=== PATIENT | female | born 1950 | race Caucasian/White ===

== ENCOUNTER 2018-02-19 09:31 | Observation (INO) | payer OTHER ==
[2018-02-19] MEDS ORDERED: PANTOPRAZOLE SODIUM 40 MG VIAL IVP ONE (09:55)
[2018-02-19] MEDS ORDERED: NS 500 ML IV ONE (09:55)
--- NOTE | 2018-02-19 10:05 | CPEKG ---
Heart Rate: 70 RR Interval: 857 P-R Interval: 188 QRSD Interval: 96 QT Interval: 444 QTC Interval: 480 P Lowman: 72 QRS Lowman: 73 T Wave Lowman: -37 EKG Severity - ABNORMAL ECG - EKG Impression: SINUS RHYTHM EKG Impression: NONSPECIFIC T ABNORMALITIES, INFERIOR LEADS Electronically Signed By: Odilon Jordan 19-Feb-2018 14:55:05
[2018-02-19 10:20] LABS: PLATELET COUNT 323 10^3/uL (150-400)
[2018-02-19 10:27] LABS: INR 0.93 (0.83-1.16); PROTIME(PATIENT) 12.7 SEC (12.0-15.0)
--- NOTE | 2018-02-19 11:06 | EDPHY ---
H & P Time Seen by Provider: 02/19/18 09:54 HPI/ROS: HPI Lightheaded, short of breath, black stool. 67-year-old female by private vehicle with . Patient was sent from the office of [facility]. She reports that on she was up in [place] playing golf with her . While playing golf she felt short of breath and lightheaded. She describes this as nearly fainting. She reports that she came back down to the [place] area and felt better but then on Monday started feeling lightheaded and short of breath again. She was seen at [facility] for routine checkup on her blood pressure. She explained which she was feeling to the clinician there was sent here for workup and evaluation. ROS: Constitutional: No fever, no chills. No weakness. Eyes: No discharge. No changes in vision. ENT: No sore throat. No nasal congestion or rhinorrhea. Respiratory: No cough. As above. Cardiac: As above, no palpitations. Gastrointestinal: No abdominal pain, no vomiting, no diarrhea. As above. Genitourinary: No hematuria. No dysuria or increased frequency with urination. Musculoskeletal: No back pain. No neck pain. No myalgias or arthralgias. Skin: No rashes. Neurological: No headache. No focal weakness or altered sensation. Past medical history: Hypertension, hypothyroid, hyperlipidemia, hysterectomy, cervical cancer. Does use NSAIDs for pain medication on a regular basis. Social history: Denies alcohol. Here with her . Nonsmoker. Physical Exam: General Appearance: Alert, no distress. This patient is responding to questions appropriately and in full sentences. This patient appears well- hydrated and well-nourished. Eyes: Pupils equal and round no pallor or injection. No lid edema, erythema or injection. Respiratory: There are no retractions, lungs are clear to auscultation with good air movement bilaterally. Cardiovascular: Regular rate and rhythm. No murmur. Gastrointestinal: Abdomen is soft and nontender, no masses, bowel sounds normal. No focal tenderness at McBurney's point. No Ibanez sign. Rectal exam: Normal tone. No gross blood. Black stool. Neurological: Motor sensory function is grossly intact. Cranial nerves are normal. Gait is normal. Skin: Warm and dry, no rashes. Musculoskeletal: Neck is supple and nontender. Extremities are symmetrical. All joints range without pain or impingement. Psychiatric: No agitation. No depression. Database: EKG: EKG time is 10:03 a.m.; EKG shows a narrow complex normal sinus rhythm with a ventricular rate of 70. The FL, QRS, QT intervals are within normal limits. Nonspecific T-wave abnormalities noted. There are no ST-T wave changes indicative of ischemic or injury pattern. No evidence of right heart strain. Interpreted by me. Imaging: Chest x-ray AP portable; the cardiac mediastinal silhouette is unremarkable. No evidence of infiltrate or pneumothorax. Bronchitis noted. No other acute cardiopulmonary disease process noted. Interpreted by me. Procedures: Emergency department course: IV placed x2. Triage vital signs reviewed. She is moderately hypertensive. Vital signs otherwise normal. Afebrile. Given her history she was started on pantoprazole, 80 mg IV. EKG obtained and reviewed by myself. She was started on IV normal saline with 500 cc to be given over the next hour. 11:20 a.m., discussed case with on-call hospitalist. Patient will be continued on pantoprazole IV per protocol while in the emergency department. Patient accepted for admission under the care of Dr. Elmore. Her vital signs have remained normal through her emergency department course. She was admitted to the hospitalist service in stable condition. On-call gastroenterology consulted on this patient. They were aware of her from [facility]. Differential Diagnosis: The differential diagnosis on this patient includes but is not limited to upper gastrointestinal bleeding, anemia, pulmonary embolism, acute coronary syndrome. This represents a partial list of diagnoses considered. These considerations are based on history, physical exam, past history, reassessment and diagnostic testing. Smoking Status: Former smoker Constitutional: Initial Vital Signs Temperature (C) 36.4 C 02/19/18 09:41 Heart Rate 72 02/19/18 09:41 Respiratory Rate 16 02/19/18 09:41 Blood Pressure 150/64 H 02/19/18 09:41 O2 Sat (%) 100 02/19/18 09:41 O2 Delivery Mode Room Air Allergies/Adverse Reactions: codeine Allergy (Verified 02/19/18 13:13) Other-Enter Comments Home Medications: Medication Instructions Recorded Aspirin EC [Aspirin EC 81 mg (*)] 81 mg PO HS 02/19/18 Estrogens,Conjugated [Premarin 1 helio VG Q3D@2100 02/19/18 Vaginal (*)] Hydrochlorothiazide [HCTZ (*)] 25 mg PO DAILY 02/19/18 Levothyroxine [Synthroid 75 mcg 75 mcg PO DAILY06 02/19/18 (*)] Medical Decision Making - Data Points Laboratory Results: Laboratory Results 02/19/18 10:12 02/19/18 10:12 02/19/18 10:12 Patient ABO/Rh A POSITIVE Antibody Screen NEGATIVE Crossmatch IS Only See Detail Medications Given: Acetaminophen (Tylenol) 650 mg PO Q4HRS PRN PRN Reason: Pain, Mild/Fever, Can Take PO Stop: 08/18/18 13:01 Last Admin: 02/19/18 18:54 Dose: 650 mg Alprazolam (Xanax) 1 mg PO HS PRN PRN Reason: Anxiety, Able to Take PO Stop: 08/18/18 20:05 Last Admin: 02/19/18 22:04 Dose: 1 mg Sodium Chloride (Ns) 1,000 mls @ 150 mls/hr IV CONT SESAR Stop: 08/18/18 13:14 Last Admin: 02/19/18 14:33 Dose: 1,000 mls Levothyroxine Sodium (Synthroid) 75 mcg PO DAILY06 SESAR Stop: 08/19/18 05:59 Last Admin: 02/20/18 05:25 Dose: 75 mcg Pantoprazole Sodium (Protonix) 40 mg IVP Q6H SESAR Stop: 08/18/18 17:18 Last Admin: 02/20/18 05:26 Dose: 40 mg Discontinued Medications Sodium Chloride (Ns) 500 mls @ 0 mls/hr IV EDNOW ONE; Wide Open PRN Reason: Protocol Stop: 02/19/18 09:56 Last Admin: 02/19/18 10:07 Dose: 500 mls Pantoprazole Sodium (Protonix) 80 mg IVP EDNOW ONE Stop: 02/19/18 09:56 Last Admin: 02/19/18 10:08 Dose: 80 mg Potassium Chloride (Klor-Con) 40 meq PO ONCE ONE PRN Reason: Protocol Stop: 02/19/18 15:36 Last Admin: 02/19/18 16:19 Dose: 40 meq Potassium Chloride (Klor-Con) 10 - 40 meq PO ONCE ONE PRN Reason: Protocol Stop: 02/19/18 21:47 Last Admin: 02/19/18 22:04 Dose: 10 meq Departure - Departure Disposition: [facility] Acute Clinical Impression: Dyspnea, Near syncope, Gastrointestinal bleeding, upper, Anemia Condition: Good
[2018-02-19] MEDS ORDERED: PROMETHAZINE HCL 25 MG/ML INJ IVP PRN (13:02)
[2018-02-19] MEDS ORDERED: ONDANSETRON 4 MG/2 ML VIAL IVP PRN (13:02)
[2018-02-19] MEDS ORDERED: oxyCODONE IR 5 MG TAB PO PRN (13:02)
[2018-02-19] MEDS ORDERED: ONDANSETRON DISINTEGRATING 4 MG TAB PO PRN (13:02)
[2018-02-19] MEDS ORDERED: HYDROmorphONE/DILAUDID 1 MG/ML INJ IVP PRN (13:02)
[2018-02-19] MEDS ORDERED: NS 1,000 ML IV SCH (13:15)
--- NOTE | 2018-02-19 13:22 | GCON ---
[f rep st] CONSULTATION REFERRING PHYSICIAN: Abisai Barreto MD CHIEF COMPLAINT: 67-year-old woman with GI bleed. HISTORY OF PRESENT ILLNESS: I have been asked to see this patient by Dr. Abisai Barreto for consult ation regarding GI bleed. This 67-year-old woman was brought into the ER by her . She report s that she has been feeling short of breath and lightheadedness for the last several days. She has n oticed some dark black stool. She does take NSAIDs on a frequent basis. She has no prior history of peptic ulcer disease or GI bleeding. She denies any heartburn or difficulty eating. She has had pr evious colonoscopy per her report, which was normal. She presented to the emergency department with the above complaints. Was found to be anemic with a hemoglobin of 9.3, hematocrit 25.9. Serum chemi stries revealed serum sodium 140, potassium 3.2 chloride 101, CO2 25, BUN of 9, creatinine 0.7. PAST MEDICAL HISTORY: Remarkable for hypertension, hypothyroidism, hyperlipidemia, hysterectomy, and cervical cancer. SOCIAL HISTORY: No significant alcohol. Nonsmoker. ALLERGIES: Codeine. MEDICATIONS: Prior to admission, included levothyroxine, hydrochlorothiazide, aspirin. FAMILY HISTORY: Noncontributory as it pertains to chief complaint. REVIEW OF SYSTEMS: Negative for 10 systems, other than mentioned in HPI. PHYSICAL EXAMINATION: VITAL SIGNS: 139/74, heart rate 69, respiratory rate 16, 97% sat on room air, 36.7. GENERAL: A very pleasant woman in no acute distress, lying on the stretcher. HEENT: Normoc ephalic, atraumatic. EOMI. NECK: Supple. No cervical adenopathy. No thyromegaly. LUNGS: Clear. CARDIAC: Normal S1, S2 without murmur. ABDOMEN: Soft, benign. Slight tenderness to palpation in the epigastrium. EXTREMITIES: With no clubbing, cyanosis, edema. NEURO: Nonfocal. SKIN: Warm, dry. PSYCH: Alert, oriented x3 with normal affect. LABORATORY DATA: As above. IMPRESSION: 67-year-old woman with most likely upper gastrointestinal bleed from nonsteroidal anti-i nflammatory drug use. Hemodynamically stable. RECOMMENDATIONS: 1. Admit to the hospital for observation. 2. Serial H and H. 3. IV Protonix 40 mg q.12 h. 4. Clear liquid diet. 5. I will proceed with endoscopy in the morning for further evaluation. 6. We will follow with you. /[id number]/MODL
[2018-02-19] MEDS ORDERED: PROTOCOL MAGNESIUM 1 DOSE IV PRN (14:31)
[2018-02-19] MEDS ORDERED: PROTOCOL POTASSIUM 1 DOSE MISC PRN (14:31)
[2018-02-19] MEDS: ACETAMINOPHEN 325 MG TAB PO PRN ×2 (14:42→18:54)
--- NOTE | 2018-02-19 15:13 | GHP ---
[f rep st] HISTORY AND PHYSICAL DATE OF ADMISSION: 02/19/2018 CHIEF COMPLAINT: Shortness of breath. HISTORY: This is a 67-year-old female with a past medical history of hypertension, hyperlipidemia, w ho presents after a visit at [facility] with complaints of shortness of breath, fatigue, and gener alized weakness. The patient notes that she has had essentially no energy for the last several days. She also notes that she has been having black tarry stools for the last several days. She is accom panied by her who notes that she has even had difficulty doing usual activities of daily abdi ng, like climbing stairs. She states that for quite some time, she has had mid epigastric abdominal pain like a burning-type pain. She notes that occasionally it is so bad, she is unable to eat. She does use ibuprofen regularly, though not daily. She is a nondrinker. She has never had issues with GI bleeding in the past. PAST MEDICAL HISTORY: Includes: 1. Hypertension. 2. Hyperlipidemia. 3. Cervical cancer. PAST SURGICAL HISTORY: Includes partial hysterectomy. FAMILY HISTORY: This is reviewed and noncontributory. SOCIAL HISTORY: The patient is . She is a vegan. She does not drink any alcohol. She is a never smoker. REVIEW OF SYSTEMS: 10-point review of systems obtained, negative except as per HPI. HOME MEDICATIONS: 1. Levothyroxine. 2. HCTZ. 3. Premarin. 4. Aspirin. ALLERGIES: Include codeine. PHYSICAL EXAMINATION: VITAL SIGNS: BP 139/74, heart rate 69, respiratory rate 16, O2 sats 97% on ro om air. Temperature was 36.7. GENERAL APPEARANCE: Well-developed/well-nourished female. She is aw molly and alert. She is in no acute distress. EYES: Anicteric. HEENT: Oropharynx clear. CARDIOVAS CULAR: Regular rate and rhythm. No MRG. PULMONARY: CTA bilaterally. ABDOMEN: Soft, mild tendern ess to palpation in the midepigastric region. Bowel sounds present. EXTREMITIES: No clubbing, cyan osis, or edema. SKIN: Warm, dry, well perfused. NEURO/PSYCH: Oriented and appropriate. CLINICAL DATA: Labs reviewed and notable for a hematocrit of 25.9, down from 39.1. Coags are within normal limits. Chemistry is notable for a potassium of 3.2. Troponin less than 0.012. Stool occul t blood is positive. Chest x-ray personally reviewed and interpreted, shows mild peribronchial thickening. EKG personally reviewed and interpreted shows sinus rhythm. ASSESSMENT/PLAN: This is a 67-year-old female with past medical history of hypertension and hyperlip idemia, presenting with shortness of breath, weakness, and malaise in the setting of acute anemia and upper gastrointestinal bleed. 1. Upper gastrointestinal bleed. I presume this is secondary to nonsteroidal anti-inflammatory drug use. She has been started on intravenous proton pump inhibitor. Gastrointestinal has been consulte d. Discussed plan with them and they will proceed with upper endoscopy in the morning. Clears overn ight. 2. Acute blood loss anemia in the setting of above. This is new for her. She does continue to decl ine slowly in her hemoglobin and hematocrit and given need for intervention in the morning, will anne sfuse 2 units of packed red blood cells at this point. She is symptomatic from her anemia as well. 3. Hypokalemia. Will replete. Will order magnesium level as well. 4. Hypertension. Currently, she is essentially normotensive. She is on hydrochlorothiazide at home given her gastrointestinal bleed and anemia. Will hold that for the time being and monitor. 5. Hypothyroid. Will continue Synthroid. 6. Observation status. 7. Patient is new to my care. Old records reviewed summarized as per History of Present Illness and past medical history. Care plan reviewed with Dr. Pearson of Gastroenterology including plan for EG D in the morning. /[id number]/MODL
[2018-02-19] MEDS ORDERED: POTASSIUM CL 10 MEQ TAB PO ONE ×2 (15:35→21:46)
--- NOTE | 2018-02-19 16:28 | ASMTCMCOM ---
CM Note CM Note Notes: Chart reviewed fo dc planning purposes. 67 Year old female was sent from [facility] to the ER with SOB, fatigue and dizzyness. She reports dark stools and takes NSAIDS. GI consulted for possible evaluation for a GI bleed. CM to follow. No anticipated needs at this time. Plan: Likely home with no needs. Date Signed: 02/19/2018 04:28 PM Electronically Signed By:Tamiko Richmond RN
[2018-02-19] MEDS: PANTOPRAZOLE SODIUM 40 MG VIAL IVP SCH ×2 (18:27→22:15)
[2018-02-19] MEDS ORDERED: ALPRAZolam 1 MG TAB PO PRN (20:06)
[2018-02-20 04:44] LABS: PLATELET COUNT 281 10^3/uL (150-400)
[2018-02-20] MEDS: PANTOPRAZOLE SODIUM 40 MG VIAL IVP SCH ×2 (05:26→11:04)
[2018-02-20] MEDS ORDERED: LEVOTHYROXINE 75 MCG TAB PO SCH (06:00)
[2018-02-20] MEDS ORDERED: POTASSIUM CL 10 MEQ TAB PO ONE (07:04)
[2018-02-20] MEDS ORDERED: LR 1,000 ML IV ONE (08:19)
[2018-02-20] MEDS ORDERED: PROPOFOL/EMULSION 500 MG/50 ML BOTTLE IV ONE (08:48)
[2018-02-20] MEDS ORDERED: LIDOCAINE 2% 100 MG/5 ML SYR ONE (08:49)
[2018-02-20] MEDS ORDERED: ALBUTEROL 3 ML DEYVIAL IH PRN (09:13)
[2018-02-20] MEDS ORDERED: NALOXONE HCL 0.4 MG/ML INJ IVP PRN (09:13)
--- NOTE | 2018-02-20 09:14 | POSTANESTH ---
Post Anesthetic Evaluation Cardiovascular Status: Similar to Pre-Op Cond Respiratory Status: Similar to Pre-op Cond. Level of Consciousness/Mental Status: Mildly Sleepy, Arousable Pain Control: Adequate, Prn Tx Ordered Nausea/Vomiting Control: Adequate, Prn Tx Ordered Complications Possibly Related to Anesthesia: None Noted
--- NOTE | 2018-02-20 09:16 | GIREPORT ---
[facility] - Endoscopy Department Patient Name: Noe Mcgee Procedure Date: 02/20/2018 8:57 AM Patient Type: Inpatient Attending MD/ ER Physician: Eugene Pearson MD Procedure: Upper GI endoscopy Indications: Epigastric abdominal pain, Acute post hemorrhagic anemia, Melena, Recen t gastrointestinal bleeding Providers: Eugene Pearson MD Medicines: General Anesthesia Complications: No immediate complications. Description of Procedure: After obtaining informed consent, the endoscope was passed under direct vision. Throughout the procedure, the patient's blood pressure, pulse, and oxygen saturations were monitored continuously. The Endoscope was intro duced through the mouth, and advanced to the second part of duodenum. The [facility] er GI endoscopy was accomplished without difficulty. The patient tolerated th e procedure well. Findings: The examined esophagus was normal. One non-bleeding cratered gastric ulcer with no stigmata of bleeding wa s found in the gastric antrum and on the greater curvature of the gastric antrum. The lesion was 10 mm in largest dimension. Biopsies were taken with a cold forceps for histology. Biopsies also taken from body and sntrum for h. pylori. The examined duodenum was normal. Biopsies for histology were taken wit h a cold forceps for evaluation of celiac disease. Estimated Blood Loss: Estimated blood loss: none. Post Op Diagnosis: - Normal esophagus. - Non-bleeding gastric ulcer with no stigmata of bleeding. Biopsied. - Normal examined duodenum. Biopsied. Recommendation: - Resume regular diet. - Use Protonix (pantoprazole) 40 mg PO daily for 8 weeks. - Repeat upper endoscopy in 8 weeks to check healing. - Thank you for allowing me to participate in the care of your patient. Attending Participation: I personally performed the entire procedure. Eugene Pearson MD Eugene Pearson MD 02/20/2018 9:15:56 AM This report has been signed electronicallyStjose cruz Pearson MD Number of Addenda: 0 Note Initiated On: 02/20/2018 8:57 AM [email or web address]
--- NOTE | 2018-02-20 10:51 | PDDCSUM ---
Discharge Summary Discharge Summary: Dates of service 02/19-02/20/18 consultations: GI Procedures: EGD Hospital course by problem: # UGIB: taken for EGD and found to have gastric ulcer as next, dc ibuprofen, no e/o active bleeding on egd as next # gastric ulcer: without stigmata of recent bleed but still presumed etiology, biopsies taken for h. pylori and pending. Plan to continue ppi x 8 weeks, f/u with GI after that for repeat EGD to ensure resolution # acute blood loss anemia: 2/2 above, transfused 2 units and h/h stable overnight # hypothyroid: continue current dose of LT4, will recommend patient f/u TFTs in next 6 weeks now that she is on PPI to ensure stability DC home f/u with PCP in next 1-2 weeks, f/u with GI in 8 weeks Items pending at discharge: h pylori testing, pathology from EGD Follow up items: repeat h/h - thyroid function testing in 6 weeks given being on PPI > 35 min spent in discharge more than half in counseling patient and family regarding f/u care plans
--- NOTE | 2018-02-20 10:57 | ASMTLACE ---
LACE Length of stay for Answers: Less than 1 day current admission # of Emergency department Answers: 1-2 visits in the last 6 months Score: 1 Date Signed: 02/20/2018 10:56 AM Electronically Signed By:Tamiko Richmond RN
--- NOTE | 2018-02-20 11:00 | ASMTCMCOM ---
CM Note CM Note Notes: Chart reviewed. S/p endoscopy. Medically cleared for discharge. Will f/u with GI in 8 weeks. No needs identified. CM available should needs arise. Plan: Home Independently. Date Signed: 02/20/2018 10:59 AM Electronically Signed By:Tamiko Richmond RN
[2018-02-20 13:53] VITALS: BP 112/67
== END 2018-02-20 14:32 | disposition home or self-care (01) ==
LOC: INTOOBSV 11:21 → F1N 12:38
PROVIDERS: ADMIT Internal Medicine; ATTEND Internal Medicine
PROC: 0DB98ZX Excision of Duodenum, Via Natural or Artificial Opening Endoscopic, Diagnostic (ICD-10-PCS; principal; 2018-02-19)
DX: K92.1 Melena (principal); E78.5 Hyperlipidemia, unspecified; E03.9 Hypothyroidism, unspecified; I10 Essential (primary) hypertension; Z90.710 Acquired absence of both cervix and uterus; Z85.41 Personal history of malignant neoplasm of cervix uteri
CPT/HCPCS: 43239; 71045; 93005; 96374; 99285; G0378; J2001; J2704; P9016